=== PATIENT | female | born 1995 | race Caucasian/White ===

== ENCOUNTER → 2018-08-18 | Outpatient (CLI) | payer SELFPAY ==
--- NOTE | 2018-08-18 15:31 | RADIOLOGY REPORT (SQ) ---
EXAM DESCRIPTION: U/S [id number] TRNABD 1GES W/ODOP COMPLETED DATE/TIME: 08/18/2018 2:33 pm REASON FOR STUDY: Z34.81 ENCOUNTER FOR SUPRVSN OF NORMAL , FIRST TRIMESTER Z34.81 ENCOUNTE R FOR SUPRVSN OF NORMAL , FIRST TRIM COMPARISON: None. TECHNIQUE: Transvaginal static and realtime grayscale images acquired of the pelvis. Additional vidya cted spectral and color Doppler images recorded. All images stored on PACs. bHCG: Not applicable. CLINICAL DATES: LMP unknown LIMITATIONS: None. FINDINGS: FETUS: Single Living intrauterine . ULTRASOUND EGA: 9 weeks 5 days ULTRASOUND FRANCOIS: 03/18/2019 EFW: Not applicable less than 20 weeks. CRL: 2.9 cm. FHR: 175 beats per minute. SURVEY: Too early to assess. AMNIOTIC FLUID: Adequate amount. PLACENTA: Not yet developed due to early gestation. SUBCHORIONIC BLEED: Yes SIZE OF BLEED: 2.2 x 1.9 x 0.6 cm UTERUS: No masses. No anomalies. CERVICAL LENGTH: 2.4 cm. Closed. RIGHT ADNEXA: Normal ovary with normal vascular flow. 1.7 x 2.3 x 2.8 cm. No adnexal free fluid. No adnexal masses. LEFT ADNEXA: Normal ovary with normal vascular flow. 3.2 x 2.3 x 1.7 cm. No adnexal free fluid. No adnexal masses. FREE FLUID: None. OTHER: No other significant finding. IMPRESSION: LIVING INTRAUTERINE . EGA 9 weeks 5 days. Trimester of : First - 0 to 13 weeks. TECHNICAL DOCUMENTATION: JOB ID: [id number]- All Rights Reserved rev-07/30 Reading location - IP/workstation name: [email or web address]
== END ==
LOC: RAD 13:20
PROVIDERS: ATTEND Midwife
DX: Z34.81 Encounter for supervision of other normal pregnancy, first trimester (principal)
CPT/HCPCS: 76801

== ENCOUNTER → 2018-11-09 | Outpatient (CLI) | payer SELFPAY ==
--- NOTE | 2018-11-09 14:10 | RADIOLOGY REPORT (SQ) ---
EXAM DESCRIPTION: U/S OB 14+ TRNABD 1GES W/O DOP COMPLETED DATE/TIME: 11/09/2018 2:01 pm REASON FOR STUDY: ENCTR FOR SUPERVISION OF NORMAL FIRST , 2ND TRIMESTER (Z34.02) Z34.02 EN CNTR FOR SUPRVSN OF NORMAL FIRST PREG, SECOND TRIME COMPARISON: 08/18/2018 TECHNIQUE: Static and Dynamic grayscale imaging performed of gravid uterus using transabdominal appr oach. Additional selected color Doppler and spectral images recorded. All stored on PACS. LIMITATIONS: None. FINDINGS: FETUSES SEEN:1 EGA: 21 weeks 5 days Calculated using BPD,FL,HC,AC documented on images. No discrepancy with clinica l dates. FRANCOIS: 03/17/2019 EFW: 465 grams KARRI: 4.8 is the largest volume pocket. PLACENTA: Posterior in location. GRADE: I PRESENTATION: Breech. ANATOMY: HEART RATE: 147 beats per minute. FOUR CHAMBER HEART: Visualized. THREE VESSEL CORD: Yes. CORD INSERTION: Visualized. KIDNEYS AND BLADDER: Visualized. Appear normal. STOMACH: Visualized. Appears normal. SPINE: Normal as visualized. BRAIN AND LATERAL VENTRICLES: Visualized. Appear normal. OTHER: No other significant finding. MATERNAL ADNEXA: Maternal ovaries not visualized. CERVICAL LENGTH: 4.2 cm. Closed. OTHER: No other significant finding. IMPRESSION: LIVING INTRAUTERINE . ESTIMATED GESTATIONAL AGE 21 WEEKS 5 DAYS. NO VISUALIZED ANOMALIES. Trimester of : Second trimester - 13 weeks 1 day to 27 weeks 6 days. TECHNICAL DOCUMENTATION: JOB ID: [id number] [employer]- All Rights Reserved Reading location - IP/workstation name: [email or web address]
== END ==
LOC: RAD 12:53
PROVIDERS: ATTEND Midwife
DX: Z34.02 Encounter for supervision of normal first pregnancy, second trimester (principal)
CPT/HCPCS: 76805

== ENCOUNTER 2019-03-22 12:09 | Inpatient (IN) | payer MEDICAID ==
[2019-03-22] MEDS ORDERED: RINGERS SOLUTION,LACTATED 1,000 ML IV ONE (13:06)
[2019-03-22] MEDS ORDERED: OXYTOCIN/NORMAL SALINE 20 UNIT/1,000 ML RTUINJ IV PRN ×3 (13:07→14:31)
--- NOTE | 2019-03-22 13:21 | Admission Physical ---
Datetime Report Generated by CPN: 03/22/2019 13:21 CURRENT ADMISSION Hx Assessment: The History has been Reviewed and is Current Chief Complaint: Uterine Contractions Indication for Induction: Not Applicable Admit Impression : Postterm, Intrauterine ; No Active Labor; Ruptured Membranes Admit Impression- Other: irreg uc's ROM 0730 today Admit Plan: Admit to Unit; Initiate Labor Augmentation Protocol ALLERGIES Medication Allergies: No Known Allergies (03/22/2019) OBSTETRICAL HISTORY EDC: 03/18/2019 00:00 : 2 Para: 0 Term: 0 : 0 SAB: 1 IAB: 0 Ectopic: 0 Livin Cesareans: 0 VBACs: 0 Multiple Births: 0 Current Procedures: Ultrasound; NST Obstetrical History Comments: G1- SAB PHYSICAL EXAM General: Normal HEENT: Normal Neurologic: Deferred Thyroid: Normal Heart: Normal Lungs: Normal Breast: Deferred Back: Normal Abdomen: Normal Genitourinary Exam: Normal Extremities: Normal DTRs: Normal Pelvic Type: Adequate Physical Exam Comments: GBS neg 40+4, ROM FETUS A EGA: 40.4 Monitoring: External US Decelerations: None Admit Comment: Admitted to LD with ROM and UC's, GBS neg, ruptured 0730, now 5.5 hours, irreg uc's, breathing thru uc's, + ROM, BP slightly elevated, Labs to include Pre-E labs PlaN: Admit, Pitocin, anticipate INFORMED CONSENT Assignment: Alphonso Boone MD Signature: with User ID: [email or web address] : with User ID: [email or web address]
[2019-03-22] MEDS: RINGERS SOLUTION,LACTATED 1,000 ML IV PRN ×4 (13:23→22:11)
[2019-03-22 13:30] LABS: ABSOLUTE LYMPHOCYTES (AUTO) 1.3 10^3/uL (0.5-4.7); ABSOLUTE MONOCYTES (AUTO) 0.6 10^3/uL (0.1-1.4); ABSOLUTE NEUT (AUTO) 9.3 10^3/uL (1.7-8.2); BASOPHILS % (AUTO) 0.2 % (0-2); EOSINOPHILS % (AUTO) 0.1 % (0-6); HEMATOCRIT 35.8 % (36.0-47.0); HEMOGLOBIN 12.2 g/dL (12.0-15.5); LYMPHOCYTES % (AUTO) 11.6 % (13-45); MEAN CORPUSCULAR HEMOGLOBIN 32.1 pg (27.0-33.4); MEAN CORPUSCULAR HGB CONC 34.1 g/dL (32.0-36.0); MEAN CORPUSCULAR VOLUME 94 fl (80-97); MONOCYTES % (AUTO) 5.1 % (3-13); PLATELET COUNT 285 10^3/uL (150-450); TOTAL CELLS COUNTED % (AUTO) 100 %; WHITE BLOOD COUNT 11.2 10^3/uL (4.0-10.5)
[2019-03-22 13:49] LABS: ALBUMIN 3.6 g/dL (3.5-5.0); ALKALINE PHOSPHATASE 137 U/L (38-126); ANION GAP 12 (5-19); ASPARTATE AMINO TRANSFERASE 18 U/L (14-36); BILIRUBIN,DIRECT 0.1 mg/dL (0.0-0.4); BILIRUBIN,TOTAL 0.3 mg/dL (0.2-1.3); BLOOD UREA NITROGEN 7 mg/dL (7-20); CALCIUM 9.4 mg/dL (8.4-10.2); CARBON DIOXIDE 18 mmol/L (22-30); CHLORIDE 106 mmol/L (98-107); GLUCOSE 153 mg/dL (75-110); POTASSIUM 4.1 mmol/L (3.6-5.0); TOTAL PROTEIN 6.5 g/dL (6.3-8.2); URIC ACID 4.6 mg/dL (2.5-6.2)
[2019-03-22] MEDS ORDERED: OXYTOCIN 10 UNIT/ML VIAL ONE (14:03)
[2019-03-22] MEDS ORDERED: MISOPROSTOL 0.2 MG TABLET ONE (14:04)
[2019-03-22] MEDS ORDERED: LIDOCAINE 1% INJ-PF (10 MG/ML) 30 ML SDV ONE (14:04)
[2019-03-22] MEDS ORDERED: OXYTOCIN/NORMAL SALINE 20 UNIT/1,000 ML RTUINJ ONE (14:04)
[2019-03-22 14:05] LABS: APPEARANCE,URINE CLEAR; BILIRUBIN,URINE NEGATIVE (NEGATIVE); COLOR,URINE YELLOW; GLUCOSE, URINE >=500 mg/dL (NEGATIVE); KETONES,URINE NEGATIVE (NEGATIVE); LEUKOCYTE ESTERASE,URINE NEGATIVE (NEGATIVE); NITRITE,URINE NEGATIVE (NEGATIVE); PROTEIN,URINE NEGATIVE (NEGATIVE); URINE SPECIFIC GRAVITY 1.017
[2019-03-22 14:29] LABS: URINE CREATININE 172.8 mg/dL (16-327); URINE PROTEIN 6.2 mg/dL (<12)
--- NOTE | 2019-03-22 14:47 | Warning Signs in Babies ---
VOD Warning Signs Datetime Report Generated by [facility]: 03/22/2019 14:46 VOD#608 -Warning Signs in Babies: Viewed with Parent(s)/Family (03/22/2019 14:46:Brian Mccullough RN)
[2019-03-22 15:14] LABS: URINE AMPHETAMINES SCREEN NEGATIVE; URINE BARBITURATES SCREEN NEGATIVE; URINE BENZODIAZEPINES SCREEN NEGATIVE; URINE COCAINE SCREEN NEGATIVE; URINE MARIJUANA (THC) SCREEN NEGATIVE; URINE METHADONE SCREEN NEGATIVE; URINE PHENCYCLIDINE SCREEN NEGATIVE
[2019-03-22] MEDS ORDERED: FENTANYL CITRATE INJ/PF 100 MCG/2 ML AMPUL ONE (18:03)
[2019-03-22] MEDS ORDERED: EPHEDRINE SULFATE INJ 50 MG/1 ML AMPULE ONE (18:04)
[2019-03-22] MEDS ORDERED: BUPIVACAINE HCL 0.25 % INJ/PF (2.5 MG/1 ML) 30 ML VIAL ONE (18:04)
[2019-03-22] MEDS ORDERED: FENTANYL/BUPIVACAINE/NS/PF 300 MCG/150 ML RTUINJ EPI ONE (18:04)
[2019-03-23] MEDS ORDERED: PENICILLIN G POTASSIUM 5,000,000 UNIT in DEXTROSE 5%-WATER 100 ML IV ONE (01:57)
[2019-03-23] MEDS ORDERED: PENICILLIN G-K 5 MILLION UNIT VIAL ONE ×4 (02:03→13:47)
[2019-03-23] MEDS: PENICILLIN G POTASSIUM 2,500,000 UNIT in DEXTROSE 5%-WATER 50 ML IV SCH ×5 (05:49→22:56)
[2019-03-23] MEDS: RINGERS SOLUTION,LACTATED 1,000 ML IV PRN (06:29)
[2019-03-23] MEDS ORDERED: FENTANYL/BUPIVACAINE/NS/PF 300 MCG/150 ML RTUINJ EPI ONE (09:01)
[2019-03-23] MEDS ORDERED: PROMETHAZINE HCL 25 MG TABLET PO PRN (16:12)
[2019-03-23] MEDS ORDERED: BENZOCAINE/MENTHOL AEROSOL SPRAY 56 ML TOP PRN (16:12)
[2019-03-23] MEDS ORDERED: GLYCERIN/WITCH HAZEL LEAF 1 EACH MED..WIPE TP PRN (16:12)
[2019-03-23] MEDS ORDERED: PROMETHAZINE HCL 25 MG SUPP.RECT PR PRN (16:12)
[2019-03-23] MEDS ORDERED: PSEUDOEPHEDRINE HCL 30 MG TABLET PO PRN (16:12)
[2019-03-23] MEDS ORDERED: OXYTOCIN/NORMAL SALINE 20 UNIT/1,000 ML RTUINJ IV PRN (16:12)
[2019-03-23] MEDS ORDERED: DIBUCAINE 1% OINTMENT 28 GM TP PRN (16:12)
[2019-03-23] MEDS ORDERED: ZOLPIDEM TARTRATE 5 MG TABLET PO PRN (16:12)
[2019-03-23] MEDS ORDERED: ACETAMINOPHEN 650 MG SUPP.RECT PR PRN (16:12)
[2019-03-23] MEDS ORDERED: NA PHOS,M-B/NA PHOS,DI-BA (ADULT) 133 ML ENEMA PR PRN (16:12)
[2019-03-23] MEDS ORDERED: MAGNESIUM HYDROXIDE SUSP 30 ML UDCUP PO PRN (16:12)
[2019-03-23] MEDS ORDERED: DIPHENHYDRAMINE HCL 25 MG CAPSULE PO PRN (16:12)
[2019-03-23] MEDS ORDERED: PROMETHAZINE HCL INJ 25 MG/1 ML VIAL IV PRN (16:12)
[2019-03-23] MEDS ORDERED: MEASLES,MUMPS&RUBELLA VACC/PF 0.5 ML VIAL SUBCUT PRN (16:12)
[2019-03-23] MEDS ORDERED: ACETAMINOPHEN WITH CODEINE #3 TABLET PO PRN ×2 (16:12)
[2019-03-23] MEDS ORDERED: DIPH/PERTUSS(ACELL)/TETANUS VAC/PF 0.5 ML SYR (>=10YO) IM PRN (16:12)
[2019-03-23] MEDS ORDERED: BENZOCAINE/MENTHOL AEROSOL SPRAY 56 ML ONE (17:24)
[2019-03-23] MEDS: DOCUSATE SODIUM 100 MG CAPSULE PO SCH (22:53)
[2019-03-23] MEDS: FERROUS SULFATE 325 MG TABLET PO SCH (22:53)
[2019-03-23] MEDS: IBUPROFEN 800 MG TABLET PO SCH (22:58)
[2019-03-23] MEDS: FAMOTIDINE 20 MG TABLET PO SCH (22:58)
[2019-03-24] MEDS: PENICILLIN G POTASSIUM 2,500,000 UNIT in DEXTROSE 5%-WATER 50 ML IV SCH ×2 (01:54→04:57)
[2019-03-24] MEDS: IBUPROFEN 800 MG TABLET PO SCH ×3 (05:05→21:02)
[2019-03-24 07:53] LABS: HEMATOCRIT 30.1 % (36.0-47.0); HEMOGLOBIN 10.5 g/dL (12.0-15.5); MEAN CORPUSCULAR HEMOGLOBIN 33.1 pg (27.0-33.4); MEAN CORPUSCULAR HGB CONC 34.9 g/dL (32.0-36.0); MEAN CORPUSCULAR VOLUME 95 fl (80-97); PLATELET COUNT 222 10^3/uL (150-450); RED BLOOD COUNT 3.17 10^6/uL (3.72-5.28); RED CELL DISTRIBUTION WIDTH 14.4 % (11.5-14.0); WHITE BLOOD COUNT 11.5 10^3/uL (4.0-10.5)
[2019-03-24] MEDS: SENNOSIDES/DOCUSATE 8.6-50 MG 1 EACH TABLET PO SCH (10:33)
[2019-03-24] MEDS: FAMOTIDINE 20 MG TABLET PO SCH ×2 (10:33→21:02)
[2019-03-24] MEDS: PRENATAL VITAMIN W DHA CAPSULE PO SCH (10:33)
[2019-03-24] MEDS: DOCUSATE SODIUM 100 MG CAPSULE PO SCH ×2 (10:33→17:30)
[2019-03-24] MEDS: FERROUS SULFATE 325 MG TABLET PO SCH ×2 (10:33→17:30)
--- NOTE | 2019-03-24 17:06 | PDOC PROGRESS REPORT ---
Subjective-OB Progress Note for:: 03/24/19 Subjective: reports bleeding slowing, pain controlled with current meds. denies needs Physical Exam (OB) Vital Signs: Temp Pulse Resp BP Pulse Ox 97.9 F 76 18 124/75 100 03/24/19 07:46 03/24/19 07:46 03/24/19 07:46 03/24/19 07:46 03/24/19 07:46 Intake & Output 03/23/19 03/24/19 03/25/19 06:59 06:59 06:59 Intake Total 2100 240 Balance 2100 240 Weight 88.4 kg - Abdomen Description: Soft Hernia Present: No Fundal Description: Firm Fundal Height: u/3 - u/4 - Abdominal Distension: No distension Tenderness: Nontender - Extremities Lower extremities: Rigoberto's sign - neg Calf: Normal, Nontender Objective-Diagnostic Laboratory: 03/24/19 07:18 03/22/19 13:05 03/24/19 07:18 WBC 11.5 H RBC 3.17 L Hgb 10.5 L Hct 30.1 L MCV 95 MCH 33.1 MCHC 34.9 RDW 14.4 H Plt Count 222 Assessment and Plan(PN) - Assessment and Plan (1) Obstetrical laceration Is this a current diagnosis for this admission?: Yes (2) Normal vaginal delivery Is this a current diagnosis for this admission?: Yes - Time Spent with Patient Time with patient: Less than 15 minutes Medications reviewed and adjusted accordingly: Yes - Disposition Anticipated Discharge: Home Within: within 24 hours
[2019-03-25] MEDS: IBUPROFEN 800 MG TABLET PO SCH (05:29)
[2019-03-25 08:00] VITALS: BP 121/89
[2019-03-25] MEDS: DOCUSATE SODIUM 100 MG CAPSULE PO SCH (09:26)
[2019-03-25] MEDS: PRENATAL VITAMIN W DHA CAPSULE PO SCH (09:26)
[2019-03-25] MEDS: FERROUS SULFATE 325 MG TABLET PO SCH (09:26)
[2019-03-25] MEDS: SENNOSIDES/DOCUSATE 8.6-50 MG 1 EACH TABLET PO SCH (09:26)
[2019-03-25] MEDS: FAMOTIDINE 20 MG TABLET PO SCH (09:26)
--- NOTE | 2019-03-25 11:36 | PDOC DISCHARGE SUMMARY ---
Impression - Admit/DC Date/PCP Admission Date/Primary Care Provider: 03/22/19 13:06 VALERIA JIMENEZ MD Discharge Date: 03/25/19 - Discharge Diagnosis (1) Obstetrical laceration Is this a current diagnosis for this admission?: Yes (2) Normal vaginal delivery Is this a current diagnosis for this admission?: Yes - Additional Information Discharge Diet: Regular Discharge Activity: Balance Activity w/Rest, Pelvic Rest Referrals: [facility] [Provider Group] Prescriptions: Ibuprofen [Motrin 800 mg Tablet] 800 mg PO Q8HP PRN #60 tablet PRN Reason: Pnv,Calcium 72/Iron/Folic Acid [ Plus Tablet] 1 each PO DAILY #90 Home Medications: Ibuprofen [Motrin 800 mg Tablet] 800 mg PO Q8HP PRN #60 tablet 03/25/19 Pnv,Calcium 72/Iron/Folic Acid [ Plus Tablet] 1 each PO DAILY #90 03/25/19 HPI Gestational Age: 40+4 Reason(s) for Admission: Induction of Labor, PROM Procedures: NST Intrapartum Procedure(s): Spontaneous Vaginal Delivery Complication(s): Laceration-Labial Results Laboratory Results: WBC 11.5 10^3/uL (4.0-10.5) H 03/24/19 07:18 RBC 3.17 10^6/uL (3.72-5.28) L 03/24/19 07:18 Hgb 10.5 g/dL (12.0-15.5) L 03/24/19 07:18 Hct 30.1 % (36.0-47.0) L 03/24/19 07:18 MCV 95 fl (80-97) 03/24/19 07:18 MCH 33.1 pg (27.0-33.4) 03/24/19 07:18 MCHC 34.9 g/dL (32.0-36.0) 03/24/19 07:18 RDW 14.4 % (11.5-14.0) H 03/24/19 07:18 Plt Count 222 10^3/uL (150-450) 03/24/19 07:18 Lymph % (Auto) 11.6 % (13-45) L 03/22/19 13:05 [place] % (Auto) 5.1 % (3-13) 03/22/19 13:05 Eos % (Auto) 0.1 % (0-6) 03/22/19 13:05 Baso % (Auto) 0.2 % (0-2) 03/22/19 13:05 Absolute Neuts (auto) 9.3 10^3/uL (1.7-8.2) H 03/22/19 13:05 Absolute Lymphs (auto) 1.3 10^3/uL (0.5-4.7) 03/22/19 13:05 Absolute Monos (auto) 0.6 10^3/uL (0.1-1.4) 03/22/19 13:05 Absolute Eos (auto) 0.0 10^3/uL (0.0-0.6) 03/22/19 13:05 Absolute Basos (auto) 0.0 10^3/uL (0.0-0.2) 03/22/19 13:05 Seg Neutrophils % 83.0 % (42-78) H 03/22/19 13:05 Sodium 135.8 mmol/L (137-145) L 03/22/19 13:05 Potassium 4.1 mmol/L (3.6-5.0) 03/22/19 13:05 Chloride 106 mmol/L (98-107) 03/22/19 13:05 Carbon Dioxide 18 mmol/L (22-30) L 03/22/19 13:05 Anion Gap 12 (5-19) 03/22/19 13:05 BUN 7 mg/dL (7-20) 03/22/19 13:05 Creatinine 0.73 mg/dL (0.52-1.25) 03/22/19 13:05 Est GFR ( Amer) > 60 (>60) 03/22/19 13:05 Est GFR (MDRD) Non-Af > 60 (>60) 03/22/19 13:05 Glucose 153 mg/dL (75-110) H 03/22/19 13:05 Uric Acid 4.6 mg/dL (2.5-6.2) 03/22/19 13:05 Calcium 9.4 mg/dL (8.4-10.2) 03/22/19 13:05 Total Bilirubin 0.3 mg/dL (0.2-1.3) 03/22/19 13:05 Direct Bilirubin 0.1 mg/dL (0.0-0.4) 03/22/19 13:05 Neonat Total Bilirubin Not Reportable 03/22/19 13:05 Neonat Direct Bilirubin Not Reportable 03/22/19 13:05 Neonat Indirect Bili Not Reportable 03/22/19 13:05 AST 18 U/L (14-36) 03/22/19 13:05 ALT 13 U/L (<35) 03/22/19 13:05 Alkaline Phosphatase 137 U/L (38-126) H 03/22/19 13:05 Lactate Dehydrogenase 162 U/L (120-246) 03/22/19 13:05 Total Protein 6.5 g/dL (6.3-8.2) 03/22/19 13:05 Albumin 3.6 g/dL (3.5-5.0) 03/22/19 13:05 Urine Color YELLOW 03/22/19 13:14 Urine Appearance CLEAR 03/22/19 13:14 Urine pH 6.0 (5.0-9.0) 03/22/19 13:14 Ur Specific [place] 1.017 03/22/19 13:14 Urine Protein NEGATIVE mg/dL (NEGATIVE) 03/22/19 13:14 Urine Glucose (UA) >=500 mg/dL (NEGATIVE) H 03/22/19 13:14 Urine Ketones NEGATIVE mg/dL (NEGATIVE) 03/22/19 13:14 Urine Blood NEGATIVE (NEGATIVE) 03/22/19 13:14 Urine Nitrite NEGATIVE (NEGATIVE) 03/22/19 13:14 Urine Bilirubin NEGATIVE (NEGATIVE) 03/22/19 13:14 Urine Urobilinogen 2.0 mg/dL (<2.0) H 03/22/19 13:14 Ur Leukocyte Esterase NEGATIVE (NEGATIVE) 03/22/19 13:14 Urine WBC (Auto) 4 /HPF 03/22/19 13:14 Urine RBC (Auto) 1 /HPF 03/22/19 13:14 Squamous Epi Cells Auto 1 /HPF 03/22/19 13:14 Urine Mucus (Auto) RARE /LPF 03/22/19 13:14 Urine Creatinine 172.8 mg/dL (16-327) 03/22/19 13:14 Protein/Creatinin Ratio 0.0 mg/mg (0.0-0.2) 03/22/19 13:14 Urine Total Protein 6.2 mg/dL (<12) 03/22/19 13:14 Urine Ascorbic Acid NEGATIVE (NEGATIVE) 03/22/19 13:14 Membranes Rupture POSITIVE (NEGATIVE) H 03/22/19 12:30 Urine Opiates Screen NEGATIVE 03/22/19 13:14 Urine Methadone Screen NEGATIVE 03/22/19 13:14 Ur Barbiturates Screen NEGATIVE 03/22/19 13:14 Ur Phencyclidine Scrn NEGATIVE 03/22/19 13:14 Ur Amphetamines Screen NEGATIVE 03/22/19 13:14 U Benzodiazepines Scrn NEGATIVE 03/22/19 13:14 Urine Cocaine Screen NEGATIVE 03/22/19 13:14 U Marijuana (THC) Screen NEGATIVE 03/22/19 13:14 RPR NONREACTIVE (NONREACTIVE) 03/22/19 13:05 Blood Type O POSITIVE 03/22/19 13:05 Antibody Screen NEGATIVE 03/22/19 13:05 Plan Plan of Treatment: follow up in 4 weeks at [facility] for post check
--- NOTE | 2019-03-27 15:01 | Delivery Summary ---
Del Sum A-C Datetime Report Generated by CPN: 03/27/2019 15:01 DELIVERY PERSONNEL DELIVERY PERSONNEL: [id number] Delivery Doctor:: Yasemin Watkins CNM Nurse Bombsight Specialist Certified:: Yasemin Watkins CNM Labor and Delivery Nurse:: Lashaun Lundberg RNdirector medical surgical Nurse:: JOSH Guardado Nursery Nurse:: Jenise Ness RN Custom Tailor Apprentice/SAFETY ASSOCIATE: [facility] Additional Personnel: : Yovana Melgoza RN nurse resident MATERNAL INFORMATION Delivery Anesthesia: Epidural Medications After Delivery: Pitocin Bolus-Please Comment Meds After Delivery Comment: Pitocin 20 units in 1000 ml nss open for bolus Estimated Blood Loss (ml): 225 Delivery QBL: 225 Maternal Complications: Premature Rupture of Membranes Provider Comments: viable male in vertex OA to DUSTIN at 1530 under epidural anesthesia. Spontaneous respirations and cry. Apgars 8-9. # vessel cord. Cord clamped x2 after 2 min delay, then cut by FOB. Right labial tear repaired under epidural anesthesia. Placenta, membranes, and cord removed manually in Razo presentation. Uterine sweep performed. IV infusing poorly until flushed. Fundus firm at U-3. Hemostasis achieved. Patient tolerated procedure well. LABOR SUMMARY EDC: 03/18/2019 00:00 No. Babies in Womb: 1 Attempted: No Labor Anesthesia: Epidural LABOR INFORMATION Reason for Induction: Not Applicable Complete Dilatation: 03/23/2019 15:06 Oxytocin: Augmentation Group B Beta Strep: NEGATIVE Antibiotics # of Doses: 4 Antibiotics Time of Last Dose: 1350 Name of Antibiotic Given: Penicillin Steroids Given: None Reason Steroids Not Administered: Not Applicable MEMBRANES Membranes Rupture Method: Spontaneous Rupture of Membranes: 03/22/2019 07:30 Length of Rupture (hr): 32.00 Amniotic Fluid Color: Clear Amniotic Fluid Amount: Scant Amniotic Fluid Odor: Normal STAGES OF LABOR Stage 2 hr: 0 Stage 2 min: 24 Stage 3 hr: 0 Stage 3 min: 16 VAGINAL DELIVERY Episiotomy: None Laceration #1: None Laceration Extension #1: First Degree Other Laceration: right labial Laceration Repair: Yes Laceration Repair Note: Repair done with 3-0 Chromic using intermittent stitches Sponge Count Correct: N/A Sponge Count Correct: N/A Sharps Count Correct: Yes Sharps Count Correct: N/A CSECTION DELIVERY Primary Indication: N/A Secondary Indication: N/A CSection Incidence: N/A Labor: N/A Elective: N/A CSection Incision: N/A BABY A INFORMATION Delivery Date/Time: 03/23/2019 15:30 Method of Delivery: Vaginal Born in Route : No : N/A Forceps: N/A Vacuum Extraction: N/A Shoulder Dystocia : No PRESENTATION/POSITION BABY A Presentation: Cephalic Cephalic Presentation: Vertex Vertex Position: Right Occipital Anterior Breech Presentation: N/A PLACENTA INFORMATION BABY A Placenta Delivery Time : 03/23/2019 15:46 Placenta Method of Delivery: Manual Removal Placenta Status: Delivered SCORES BABY A Heart Rate 1 min: >100 bpm Resp Effort 1 min: Good Cry Reflex Irritability 1 min: Cough or Sneeze or Pulls Away Muscle Tone 1 min: Active Motion Color 1 min: Blue/Pale Resuscitation Effort 1 min: Tactile Stimulation SCORE 1 MIN: 8 Heart Rate 5 min: >100 bpm Resp Effort 5 min: Good Cry Reflex Irritability 5 min: Cough or Sneeze or Pulls Away Muscle Tone 5 min: Active Motion Color 5 min: Body [place], Extremities Blue Resuscitation Effort 5 min: N/A SCORE 5 MIN: 9 Resuscitation Effort 10 min: N/A INFORMATION BABY A Gestational Age at Delivery: 40.5 Gestational Status: Full Term- 39- 40.6 Weeks Outcome : Liveborn Infant Condition : Stable Infant Sex: Male IDENTIFICATION BABY A Infant Verification Date/Time: 03/23/2019 15:51 ID Band Number: [id number] Mother's Name Verified: Yes RN Verifying : Hailee Camp, RNC Additional Verifying Personnel: Lashaun Lundberg RN WEIGHT/LENGTH BABY A Infant Birthweight (gm): 3020 Infant Weight (lb): 6 Weight (oz): 11 Infant Length (in): 20.00 Infant Length (cm): 50.80 CORD INFORMATION BABY A No. Cord Vessels: 3 Nuchal Cord : N/A Cord Blood Taken: Yes-For Eval (Mom's Blood Type - or O+) Infant Suction: None ASSESSMENT BABY A Infant Complications: Multiple Late Decels; Meconium Physical Findings at Delivery: Caput Succedaneum; Puncture Wound from Scalp Electrode Infant Respirations: Appears Normal Skin to Skin: Yes Wood Handler/ALS Called : No Infant Care By: C Nancybel RN Transferred To: Remains with Mother BABY B INFORMATION : N/A SIGNATURES Assignment: Steve Grace MD Signature: with User ID: [email or web address] : with User ID: [email or web address] : I personally evaluated and examined the patient in conjunction with the MLP and agree with the assessment, treatment plan and disposition.
== END 2019-03-25 16:00 | disposition home or self-care (01) | DRG 807 ==
LOC: LC 12:09 → LR 13:06 → 2S 03-23 18:33
PROVIDERS: ADMIT Obstetrics & Gynecology; ATTEND Obstetrics & Gynecology
PROC: 10E0XZZ Delivery of Products of Conception, External Approach (ICD-10-PCS; principal; 2019-03-23)
PROC: 0HQ9XZZ Repair Perineum Skin, External Approach (ICD-10-PCS; 2019-03-23)
DX: O48.0 Post-term pregnancy (principal); Z37.0 Single live birth; O76 Abnormality in fetal heart rate and rhythm complicating labor and delivery; O77.0 Labor and delivery complicated by meconium in amniotic fluid; O70.0 First degree perineal laceration during delivery; Z3A.40 40 weeks gestation of pregnancy; O42.92 Full-term premature rupture of membranes, unspecified as to length of time between rupture and onset of labor; O99.334 Smoking (tobacco) complicating childbirth; F17.210 Nicotine dependence, cigarettes, uncomplicated
CPT/HCPCS: 36415; 80053; 80307; 81001; 82570; 83615; 84112; 84156; 84550; 85025; 85027; 86592; 86850; 86900; 86901; 88307; 94760; J2540; J2590; J3010; J3490; J7060